=== PATIENT | male | born 1950 | race Caucasian/White ===

== ENCOUNTER 2024-07-01 13:18 | Observation (INO) | payer OTHER, MEDICARE ==
[~2024-07-01] VITALS: Ht 172.7 cm; Wt 126.8 kg
[2024-07-01] MEDS ORDERED: HYDROCODONE/APAP 10/325 1 TAB PO ONE (14:15)
[2024-07-01] MEDS ORDERED: ONDANSETRON 4 MG TAB ODT SL ONE (14:15)
[2024-07-01 15:19] LABS: BASOPHILS 0.7 % (0-2); EOSINOPHILS 1.3 % (0-6); HEMATOCRIT 35.3 % (35.0-50.0); HEMOGLOBIN 11.6 g/dL (12.0-18.0); LYMPHOCYTES 16.5 % (24-44); MCH 29.4 (27-36); MCV 89.1 fl (81-99); MONOCYTES 5.6 % (0-12); NEUTROPHILS 75.9 % (39-80); PLATELET COUNT 156 K/uL (140-440); RBC 3.96 M/ul (4.3-5.7); RDW 14.1 (10.5-15.0)
[2024-07-01 15:36] LABS: ALBUMIN 3.4 g/dL (3.4-5.0); ALBUMIN/GLOBULIN RATIO 1.1 (1.1-2.4); ANION GAP 21.2 (7-21); BILIRUBIN, TOTAL 0.5 ng/dL (0.2-1.0); BUN/CREATININE RATIO 24.9 (6.0-28.6); CALCIUM 8.1 mg/dL (8.5-10.1); CREATININE, SERUM 2.77 mg/dL (0.70-1.30); POTASSIUM 4.2 mmol/L (3.5-5.1); PROTEIN, TOTAL 6.5 g/dL (6.4-8.2)
[2024-07-01 16:06] LABS: BILIRUBIN, URINE NEGATIVE (negative); BLOOD/HGB, URINE TRACE-I (Negative); KETONE, URINE NEGATIVE (Negative); LEUK ESTERASE, URINE NEGATIVE (negative); NITRITE, URINE NEGATIVE (negative); PH, URINE 5.5 (5-7)
[2024-07-01 16:11] LABS: BACTERIA, URINE NONE SEEN /hpf (negative); CASTS, URINE NONE SEEN \\lpf; COLLECTION TYPE, URINE CLEAN CATCH; CRYSTALS, URINE NONE SEEN (0-1+); EPITHELIAL CELLS, URINE 0 /lpf (0-1+); RED BLOOD CELLS, URINE 0-1 /hpf (0-5); REFLEX CULTURE, URINE No (No)
[2024-07-01] MEDS ORDERED: HYDROmorphone HCL 1 MG/ML SYR IV ONE (16:30)
[2024-07-01] MEDS ORDERED: SODIUM CHLORIDE 0.9% 1,000 ML IV PRN (16:30)
[2024-07-01] MEDS ORDERED: LACTATED RINGER'S 1,000 ML IV SCH (17:00)
[2024-07-01] MEDS ORDERED: ondansetron HCL 4 MG/2 ML VIAL IV PRN (17:00)
[2024-07-01] MEDS ORDERED: HYDROmorphone HCL 1 MG/ML SYR IV PRN (17:00)
[2024-07-01 17:48] VITALS: BP 168/77
--- NOTE | 2024-07-01 18:40 | NUR ---
TELEPHONE ORDERS RECEIVED FROM DR. LARSON - CONSULT ENTERED. RIGHT CLAVICLE XRAY ORDERED.
--- NOTE | 2024-07-01 18:41 | NUR ---
NEW ADMIT TO THE MEDICAL FLOOR. PATIENT ARRIVED TO UNIT ALERT AND ORIENTED X4. PATIENT HAS A SLING IN PLACE TO RIGHT ARM, CMS INTACT. BRUISING NOTED TO LEFT RIB CAGE AREA. PATIENT'S VITALS ARE STABLE, SP02 98% ON ROOM AIR, RESPIRATIONS NON LABORED. PATIENT REPORTS BREATHING "FEELS TIGHT" DUE TO RIB PAIN. ADMIN DILAUDID 0.5MG IV AT THIS TIME. TELE PLACED PER PRDER. JELLO AND FRESH WATER PROVIDED. IV FLUIDS STARTED. PATIENT VOIDED UPON ADMIT, STOOD AT BEDSIDE WITH ASSISTANCE. BED ALARM INTACT.
[2024-07-01] MEDS ORDERED: ALBUTEROL SULFATE 0.5% 2.5 MG/0.5 ML VIAL INH PRN (19:00)
--- NOTE | 2024-07-01 19:28 | NUR ---
REPORT RECIEVED FROM DAY SHIFT RN. PATIENT RESTING IN BED ON PHONE. DENIES NEEDS AT THIS TIME. CALL LIGHT IN REACH.
[2024-07-01 20:19] VITALS: BP 137/69
[2024-07-01 20:20] VITALS: BP 137/69
--- NOTE | 2024-07-01 20:31 | NUR ---
VS AND I&Os OBTAINED AND RECORDED. ASSESSMENT COMPLETE. BILAT UPPER AND LOWER EXTREMITIES HAVE STRONG PULSES PRESENT. PATIENT DENIES PAIN AT THIS TIME. TELE IN PLACE. CPOX IN PLACE. IS EDUCATION PROVIDED. PATIENT STATES HE HAS BEEN USING IT THIS EVENING. PATIENT EDUCATED TO CALL IF HE NEEDS ANYTHING. NEURO CHECK COMPLETED. PATIENT A&O x4. PATIENT DENIES HEAD ACHE OR DIZZINESS AT THIS TIME. PATIENT EDUCATED TO CALL IF HE STARTS FEELING THOSE SYMPTOMS. PATIENT VERBILIZES UNDERSTANDING. PATIENT HAS NO FURTHER NEEDS. CALL LIGHT IN REACH.
--- NOTE | 2024-07-01 22:10 | NUR ---
PATIENT ASSISTED TO STAND AT THE BEDSIDE AND USE THE URINAL. PATIENT ABLE TO VOID. PATIENT IS BACK IN BEDS RESTING. IV INFUSING PER ORDER. SCDS IN USE. PATIENT SHON ANY PAIN. PATIENT DENIES ANY NEEDS. CALL LIGHT IN REACH. RIGHT SHOULDER IMMOBOLIZER IN PLACE AND ELEVATED ON X2 PILLOWS.
--- NOTE | 2024-07-01 22:10 | NUR ---
SCDS PLACED ON PT LEGS. PT STATES NO NEEDS AT THIS TIME. CALL LIGHT WITHIN REACH.
--- NOTE | 2024-07-01 23:22 | NUR ---
PATIENT RESTING IN BED. 2L NC PLACED ON PATIENT FOR SLEEP APNEA. PATIENT HAS NO FURTHER NEEDS. CALL LIGHT IN REACH.
[2024-07-02 01:17] VITALS: BP 179/82
--- NOTE | 2024-07-02 02:03 | NUR ---
IN ROOM TO ASSESS PATIENT. ASSESSMENT COMPLETE. PATIENT REPORTING 7/10 PAIN, AND REQUESTING PAIN MEDICATION. PRN PAIN MEDICATION ADMINISTERED, SEE E-MAR. ASSISTED PATIENT TO STAND AT BEDSIDE AND USE THE URINAL. PATIENT VOIDED WITHOUT DIFFICULTY. PATIENT RETURNED TO BED AND WAS REPOSITIONED. WATER REFILLED. PATIENT DENIES ADDITIONAL NEEDS AT THIS TIME. CPOX IN PLACE. CALL LIGHT IN REACH.
--- NOTE | 2024-07-02 03:35 | NUR ---
IN ROOM RESPONDING TO CPOX ALARM. PATIENT AWAKE AND NOT IN ACUTE DISTRESS. PATIENT WAS ASLEEP WHEN THE ALARM INITIALLY SOUNDED, PATIENT HAS HX OF ESTEBAN, CPAP NOT PRESENT. OXYGEN SATURATION RETURNED TO 95% UPON PATIENT WAKING UP. 2L VIA NC IN PLACE. IMMOBILIZER IN PLACE. CALL LIGHT IN REACH.
[2024-07-02 05:36] VITALS: BP 153/72
[2024-07-02 05:41] VITALS: BP 153/72
--- NOTE | 2024-07-02 05:46 | NUR ---
CAN OBTAINED VITALS AND I&O. PT STATED THAT HE NEEDED TO USE URINAL. ACADEMIC SERVICES PROFESSIONAL ASSISTED PT TO STAND AT BEDSIDE AND USE URINAL. OUTPUT MEASURED AND DOCUMENTED. PT ASSISTED BACK INTO BED. SCDS BACK IN PLACE AND PT BOOSTED IN BED. PT STATES NO FURTHER NEEDS AT THIS TIME. CALL LIGHT WITHIN REACH.
--- NOTE | 2024-07-02 07:05 | NUR ---
REPORT RECEIVED FROM NEDA PERALTA AND NEDA ARIAS. NEDA PERALTA APPLYING CRYOCUFF TO R SHOULDER. PT RESTING IN BED WITH HOB ELEVATED, AWAKE AND CONVERSING. NO NEEDS AT THIS TIME, CALL LIGHT IN REACH.
[2024-07-02] MEDS ORDERED: PROCHLORPERAZINE EDISYLATE 10 MG/2 ML VIAL IV PRN (07:15)
[2024-07-02] MEDS ORDERED: ACETAMINOPHEN 325 MG TAB PO PRN (07:15)
[2024-07-02] MEDS ORDERED: OXYCODONE HCL 5 MG TAB PO PRN (07:15)
[2024-07-02] MEDS ORDERED: HYDROmorphone HCL 1 MG/ML SYR IV PRN (07:15)
[2024-07-02] MEDS ORDERED: LACTATED RINGER'S 1,000 ML IV SCH (07:15)
[2024-07-02] MEDS ORDERED: ondansetron HCL 4 MG/2 ML VIAL IV PRN (07:15)
[2024-07-02 07:30] LABS: BASOPHILS 0.5 % (0-2); EOSINOPHILS 4.6 % (0-6); HEMATOCRIT 33.5 % (35.0-50.0); HEMOGLOBIN 11.2 g/dL (12.0-18.0); LYMPHOCYTES 28.4 % (24-44); MCH 29.5 (27-36); MCHC 33.4 g/dl (30-36); MCV 88.1 fl (81-99); MONOCYTES 8.9 % (0-12); NEUTROPHILS 57.6 % (39-80); PLATELET COUNT 144 K/uL (140-440); RDW 13.8 (10.5-15.0)
--- NOTE | 2024-07-02 07:39 | NUR ---
PATIENT IS GOING DOWN TO IMAGING AT THIS TIME AND IS OFF THE FLOOR.
[2024-07-02 07:49] LABS: ALBUMIN/GLOBULIN RATIO 0.97 (1.1-2.4); ANION GAP 18.2 (7-21); BILIRUBIN, TOTAL 0.8 ng/dL (0.2-1.0); BUN/CREATININE RATIO 20.54 (6.0-28.6); CREATININE, SERUM 2.58 mg/dL (0.70-1.30); MAGNESIUM 1.7 mg/dL (1.8-2.4); PHOSPHORUS, INORGANIC 3.1 mg/dL (2.5-4.9); POTASSIUM 4.2 mmol/L (3.5-5.1); PROTEIN, TOTAL 6.1 g/dL (6.4-8.2)
--- NOTE | 2024-07-02 07:50 | NUR ---
UR CLINICAL REVIEW: [facility]-MEETS OBS CRITERIA FOR RIB FRACTURES [facility] TPL OBS 07/01/24 @ 1653 ORDER MATCHES REG NO AUTH REQUIRED PLAN TO DC HOME WHEN STABLE 07/03/24
--- NOTE | 2024-07-02 08:07 | NUR ---
PT RETURNS FROM IMAGING. PT RECONNECTED TO SCDs, CRYOCUFF, CPOX, AND IVF AT 100ML/HR. PT IV FLUSHES WNL. BREAKFAST TRAY ARRIVES, NEDA HERNANDEZ CUTS PTs FOOD AND SETS TRAY UP FOR HIM. PT BOOSTED UP AND REPOSITIONED IN BED, STATES HE FEELS HE IS BETTER POSITIONED NOW. NO OTHER NEEDS AT THIS TIME, CALL LIGHT AND PERSONAL BELONGINGS IN REACH.
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
[2024-07-02] MEDS ORDERED: BREO ELLIPTA I1 EACH INH (08:37)
[2024-07-02] MEDS ORDERED: FUROSEMIDE40 MG PO (08:38)
[2024-07-02] MEDS ORDERED: AMLODIPINE BESYL5 MG PO (08:38)
[2024-07-02] MEDS ORDERED: ATORVASTATIN CA10 MG PO (08:38)
[2024-07-02] MEDS ORDERED: CHLORTHALIDONE50 MG PO (08:39)
[2024-07-02] MEDS ORDERED: LOSARTAN POTAS100 MG PO (08:39)
[2024-07-02] MEDS ORDERED: OMEPRAZOLE20 MG PO (08:39)
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
[2024-07-02 08:51] VITALS: BP 168/69
[2024-07-02] MEDS ORDERED: DOCUSATE SODIUM 100 MG CAP PO SCH (09:00)
[2024-07-02] MEDS ORDERED: PANTOPRAZOLE SODIUM 40 MG TABEC PO SCH (09:00)
--- NOTE | 2024-07-02 09:15 | NUR ---
IV FLUIDS DISCONNECTED WHILE PATIENT WORKS WITH PT AT THIS TIME. PATIENT AND PT STATED NO FURTHER NEEDS. CALL LIGHT IN REACH IF NEEDED.
[2024-07-02] MEDS ORDERED: MAGNESIUM OXIDE 400 MG TABLET PO SCH (09:37)
[2024-07-02] MEDS ORDERED: TRULICITY4.5 MG/0.5 SUB-Q (10:33)
[2024-07-02] MEDS ORDERED: TAMSULOSIN HCL0.4 MG PO (10:33)
[2024-07-02] MEDS ORDERED: PRESERVISION A1 EAC3 PO (10:34)
[2024-07-02] MEDS ORDERED: VENTOLIN HFA18 GM INH (10:34)
[2024-07-02] MEDS ORDERED: ADULT LOW DOSE81 MG PO (10:34)
--- NOTE | 2024-07-02 10:35 | NUR ---
MED REC COMPLETE
--- NOTE | 2024-07-02 10:50 | NUR ---
VISITED DURING SPIRITUAL CARE ROUNDS. PT EXPRESSED GRATITUDE, SITUATIONAL APPROPRIATE EMOTIONS. CORE JAVA ENGINEER PROVIDED SUPPORTIVE PRESENCE, ANXIETY CONTAINMNENT, ANTICIPATORY GUIDANCE, HOSPITALITY, PRAYER. PT EXPRESSED GRATITUDE FOR VISIT, HOPE FOR RECOVERY.
--- NOTE | 2024-07-02 11:13 | NUR ---
PT RESTING IN RECLINER WITH BLE ELEVATED AND TWO PILLOWS UNDER R SHOULDER. EYES CLOSED, RR EVEN AND UNLABORED. CALL LIGHT ACROSS LAP.
[2024-07-02] MEDS ORDERED: OXYCODONE HCL10 MG PO (12:39)
--- NOTE | 2024-07-02 12:46 | NUR ---
PATIENT REPOSITIONED IN THE CHAIR WITH HELP FROM NEDA RESTREPO. PATIENT EXPRESSED FEELING LIKE THEY ARE SLIDING OUT. PATIENT IS SET UP FOR LUNCH AT THIS TIME. PATIENT STATED NO FURTHER NEEDS AT THIS TIME. CALL LIGHT AND PERSONAL BELONGINGS ARE WITHIN REACH.
--- NOTE | 2024-07-02 12:52 | NUR ---
Spoke with pt. He lives in a home with 2 steps. He plans on dc to home with is sister to [place]. She will take him to [place] to fu with a ortho. Pt has an immobilizer in place and a breg cooler. Pt was able to complete stairs and walk with PT. He denies needs. I called his sister at his request and she is on her way to pick him up. We discussed RX is in the chart and pt would like her to corn picker in town. She is in agreement. I let her know to ask the nurses for the RX and told her where [facility], and [facility] pharmacy are located. Pt will dc to home today.
[2024-07-02 13:17] VITALS: BP 152/69
--- NOTE | 2024-07-02 13:35 | NUR ---
ROUNDING ON PT. PT UP IN RECLINER USING HIS PHONE, LOOKS UP WHEN THIS RN ENTERS THE ROOM. NO NEEDS AT THIS TIME, CALL LIGHT AND PERSONAL BELONGINGS IN REACH.
--- NOTE | 2024-07-02 16:33 | EKG ---
[facility] [address] [facility] [place], [place] [address] Signed Sinus rhythm with marked sinus arrhythmia Low voltage QRS Nonspecific T wave abnormality Abnormal ECG No previous ECGs available Confirmed by Addison Luu MD ([id number]) on 07/02/2024 4:33:40 PM Electronically Signed By: ADDISON LUU DO 07/02/24 1633 PATIENT NAME: DAYTON HERMOSILLO Electrocardiogram DATE OF : 54 PHYSICIAN: ADDISON LUU DO REPORT #: [id number] REPORT IS CONFIDENTIAL AND NOT TO BE RELEASED WITHOUT AUTHORIZATION
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
== END 2024-07-02 16:05 | disposition home or self-care (01) ==
LOC: ED 13:18 → MS 13:19
PROVIDERS: Emergency Medicine; ADMIT Colon & Rectal Surgery; ATTEND Colon & Rectal Surgery
DX: S42.021A Displaced fracture of shaft of right clavicle, initial encounter for closed fracture (principal); S22.20XA Unspecified fracture of sternum, initial encounter for closed fracture; S22.42XA Multiple fractures of ribs, left side, initial encounter for closed fracture; V59.3XXA Occupant (driver) (passenger) of pick-up truck or van injured in unspecified nontraffic accident, initial encounter; I25.10 Atherosclerotic heart disease of native coronary artery without angina pectoris; I12.9 Hypertensive chronic kidney disease with stage 1 through stage 4 chronic kidney disease, or unspecified chronic kidney disease; E11.22 Type 2 diabetes mellitus with diabetic chronic kidney disease; N18.4 Chronic kidney disease, stage 4 (severe); E66.9 Obesity, unspecified; Z68.41 Body mass index [BMI] 40.0-44.9, adult; Z87.891 Personal history of nicotine dependence; Z79.899 Other long term (current) drug therapy; Z88.8 Allergy status to other drugs, medicaments and biological substances; Z90.49 Acquired absence of other specified parts of digestive tract
CPT/HCPCS: 36415; 71045; 71250; 73000; 73030; 74176; 80053; 81001; 83735; 84100; 85025; 93005; 93010; 94762; 97162; 97166; A9270; G0480; J1171; J7121